=== PATIENT | male | born 1945 | race Caucasian/White ===

== ENCOUNTER 2021-07-18 10:11 | Observation (INO) | payer MEDICARE ==
[2021-07-14 11:06] LABS: BASOPHILS # (AUTO) 0.1 (0.0-0.1); BASOPHILS % 0.9 % (0.0-1.0); EOSINOPHILS # (AUTO) 0.3 (0.0-0.4); EOSINOPHILS % 4.9 % (0.0-6.0); HEMATOCRIT 37.8 % (38.2-49.6); HEMOGLOBIN 11.8 g/dL (14.0-18.0); LYMPHOCYTES # (AUTO) 1.6 (1.0-3.2); LYMPHOCYTES % 23.5 % (18.0-39.1); MEAN CORPUSCULAR HEMOGLOBIN 25.7 pg (28-32); MEAN CORPUSCULAR HGB CONC 31.2 g/dL (31-35); MEAN CORPUSCULAR VOLUME 82.2 fL (81-99); MONOCYTES # (AUTO) 0.6 (0.2-0.8); MONOCYTES % 8.9 % (4.4-11.3); NEUTROPHILS # (AUTO) 4.3 (2.1-6.9); NEUTROPHILS % 61.7 % (38.7-80.0); PLATELET COUNT 294 x10e3/uL (140-360); RED CELL DISTRIBUTION WIDTH 17.5 % (11.7-14.4)
[2021-07-14 11:24] LABS: ALBUMIN 4.2 g/dL (3.5-5.0); ALBUMIN/GLOBULIN RATIO 1.4 (0.8-2.0); ANION GAP 15.6 mmol/L (8-16); CREATININE, SERUM 0.81 mg/dL (0.72-1.25); POTASSIUM 4.6 mmol/L (3.5-5.1)
[~2021-07-18] VITALS: Ht 182.9 cm; Wt 97.1 kg
[~2021-07-18 10:11] MED LIST: AMLODIPINE BESYL5 MG PO; ARICEPT10 MG PO; ATORVASTATIN CA20 MG PO; FEROSUL325 MG PO; GLIMEPIRIDE2 MG PO; LISINOPRIL10 MG PO; METFORMIN HCL500 MG PO; NAMENDA10 MG PO; PANTOPRAZOLE SO40 MG PO; PLAVIX75 MG PO; VITAMIN C500 MG PO
[2021-07-18 10:22] VITALS: BP 163/77
[2021-07-18] MEDS ORDERED: ALPRAZOLAM 0.5 MG TAB ONE (11:30)
[2021-07-18] MEDS ORDERED: SODIUM CHLORIDE 0.9% 1000ML 1,000 ML ONE (11:30)
[2021-07-18] MEDS ORDERED: DIPHENHYDRAMINE HCL 25 MG CAP ONE (11:30)
[2021-07-18] MEDS ORDERED: VERAPAMIL HCL 2.5 MG/ML 2 ML VIAL ONE (12:11)
[2021-07-18] MEDS ORDERED: FENTANYL CITRATE/PF 100MCG/2 ML INJ ONE (12:11)
[2021-07-18] MEDS ORDERED: MIDAZOLAM HCL 2 MG/2 ML VIAL ONE ×2 (12:11→13:41)
[2021-07-18] MEDS ORDERED: HEPARIN SOD (PORCINE) 1000 UNIT/ML 30ML ONE (12:11)
[2021-07-18] MEDS ORDERED: LIDOCAINE HCL 2% LOCAL 20 ML VIAL ONE (12:12)
[2021-07-18] MEDS ORDERED: HEPARIN SOD/SOD CHLORIDE 2,000 ML ONE (12:12)
[2021-07-18] MEDS ORDERED: NITROGLYCERIN/D5W 200 MCG/ML 250 ML ONE (12:12)
[2021-07-18] MEDS ORDERED: IOPAMIDOL 370 MG/ML 200 ML INFUS..BTL INJ ONE (12:12)
[2021-07-18] MEDS ORDERED: BIVALRIUDIN 250 MG/VIAL VIAL IV ONE (13:13)
[2021-07-18] MEDS ORDERED: SODIUM CHLORIDE 0.9% 50ML 50 ML ONE (13:13)
[2021-07-18] MEDS ORDERED: HYDROCODONE/APAP 5MG-325MG TAB PO PRN (14:15)
[2021-07-18] MEDS ORDERED: SODIUM CHLORIDE 0.9% 1000ML 1,000 ML IV SCH (14:15)
[2021-07-18] MEDS ORDERED: ONDANSETRON HCL INJ 2MG/ML 2ML 2 MG/ML VIAL IV PRN (14:15)
[2021-07-18] MEDS ORDERED: ACETAMINOPHEN 325 MG TAB PO PRN (14:15)
[2021-07-18] MEDS ORDERED: Morphine 2mg Syringe 2 MG/ML SYR IV PRN (14:15)
[2021-07-18] MEDS ORDERED: ZOLPIDEM TARTRATE 5 MG TAB PO PRN (21:00)
== END 2021-07-18 21:25 | disposition home or self-care (01) ==
LOC: CATH LAB 10:11 → MED/SURG 17:06 → INTOOBSV 17:06
PROVIDERS: ADMIT Internal Medicine Interventional Cardiology; ATTEND Internal Medicine Interventional Cardiology
DX: I25.119 Atherosclerotic heart disease of native coronary artery with unspecified angina pectoris (principal); I10 Essential (primary) hypertension; E11.9 Type 2 diabetes mellitus without complications; Z79.84 Long term (current) use of oral hypoglycemic drugs; Z01.812 Encounter for preprocedural laboratory examination; Z20.822 Contact with and (suspected) exposure to COVID-19
CPT/HCPCS: 93454; C9600; 36415; 76937; 80053; 82948; 85025; 92920; 92928; 99152; 99153; C1725; C1874; C1887; C1894; G0378; J0583; J1644; J2001; J2250; J3010; J7030; Q9967; U0002